=== PATIENT | male | born 1985 | race Native Hawaiian/Other Pacific Islander ===

== ENCOUNTER 2017-07-02 18:02 | Emergency (ER) | payer BC ==
[~2017-07-02] VITALS: Ht 172.7 cm; Wt 93.0 kg
[2017-07-02] MEDS ORDERED: NICORETTE2 M1 MT (18:11)
== END 2017-07-02 18:45 | disposition home or self-care (01) ==
LOC: ED 18:02
DX: S05.02XA Injury of conjunctiva and corneal abrasion without foreign body, left eye, initial encounter (principal); S05.01XA Injury of conjunctiva and corneal abrasion without foreign body, right eye, initial encounter
CPT/HCPCS: 99283

== ENCOUNTER 2019-11-20 15:28 | Emergency (ER) | payer OTHER ==
[~2019-11-20] VITALS: Ht 180.3 cm; Wt 79.4 kg
[~2019-11-20 15:28] MED LIST: NICORETTE2 M1 MT
[2019-11-20 16:19] LABS: PLATELET COUNT 160 K/uL (142-355)
[2019-11-20 16:24] LABS: POTASSIUM 3.6 mmol/L (3.6-5.2); SODIUM 140 mmol/L (136-145)
[2019-11-20 17:10] LABS: PARTIAL THROMBOPLASTIN TIME 29.5 SECONDS (24.5-33.6)
[2019-11-20 18:41] VITALS: BP 119/78; TEMP 98
== END 2019-11-20 18:43 | disposition home or self-care (01) ==
LOC: ED 15:28
PROVIDERS: Family Medicine
DX: J12.9 Viral pneumonia, unspecified (principal); Z03.818 Encounter for observation for suspected exposure to other biological agents ruled out; M94.0 Chondrocostal junction syndrome [Tietze]; F17.220 Nicotine dependence, chewing tobacco, uncomplicated
CPT/HCPCS: 36415; 80053; 80307; 81000; 82550; 84484; 85027; 85379; 85610; 85730; 87502; 87635; 93005; 99283; U0002

== ENCOUNTER 2023-01-11 22:16 | Emergency (ER) | payer OTHER ==
[~2023-01-11] VITALS: Ht 180.3 cm; Wt 86.2 kg
[2023-01-11 23:00] LABS: PLATELET COUNT 169 K/uL (142-355)
[2023-01-11 23:03] LABS: POTASSIUM 3.8 mmol/L (3.6-5.2)
[2023-01-12 01:00] VITALS: BP 148/90; TEMP 98.1
== END 2023-01-12 01:00 | disposition home or self-care (01) ==
LOC: ED 22:16
PROVIDERS: Family Medicine
PROC: 2W2QX4Z Dressing of Right Lower Leg using Bandage (ICD-10-PCS; principal; 2023-01-11)
PROC: 2W2RX4Z Dressing of Left Lower Leg using Bandage (ICD-10-PCS; 2023-01-11)
DX: T24.202A Burn of second degree of unspecified site of left lower limb, except ankle and foot, initial encounter (principal); T24.201A Burn of second degree of unspecified site of right lower limb, except ankle and foot, initial encounter; S80.812A Abrasion, left lower leg, initial encounter; S80.811A Abrasion, right lower leg, initial encounter; W39.XXXA Discharge of firework, initial encounter
CPT/HCPCS: 36415; 80053; 85027; 90715; 96361; 96372; 96374; 96375; 99285; J2060; J2270; J2405